=== PATIENT | male | born 1975 | race Hispanic/Latino ===

== ENCOUNTER 2021-05-16 09:59 | Day surgery (SDC) | payer OTHER ==
[2021-05-16] MEDS ORDERED: ceFAZolin/Water 2 GM/20 ML 2 GM/20 ML SYRINGE IV ONE (10:49)
[2021-05-16] MEDS ORDERED: LACTATED RINGERS 1,000 ML ONE (10:49)
[2021-05-16] MEDS ORDERED: ceFAZolin/STERILE WATER 2 GM/20 ML SYRINGE IV NR (11:00)
[2021-05-16] MEDS ORDERED: ONDANSETRON 4 MG/2 ML INJ IV PRN (11:35)
[2021-05-16] MEDS ORDERED: HYDROmorphone 1 MG/1 ML INJ IV PRN ×2 (11:35)
--- NOTE | 2021-05-16 11:35 | Anesthesia Day of Surgery ---
Anesthesia Day of Surgery - Day of Surgery Patient Examined: Yes Patient H&P Reviewed: Yes Patient is NPO: Yes
--- NOTE | 2021-05-16 11:38 | Anesthesia Consultation ---
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
[2021-05-16] MEDS ORDERED: LACTATED RINGERS 1,000 ML IV SCH (11:45)
[2021-05-16] MEDS ORDERED: MIDAZOLAM 2 MG/2 ML INJ IV NR (12:00)
[2021-05-16] MEDS ORDERED: LIDOCAINE MPF (2%) 20 MG/1 ML VIAL 5 ML ONE (12:15)
[2021-05-16] MEDS ORDERED: fentaNYL 100 MCG/2 ML INJ ONE ×2 (12:15→13:02)
[2021-05-16] MEDS ORDERED: propofoL 200 MG/20 ML VIAL IV ONE (12:15)
[2021-05-16] MEDS ORDERED: ONDANSETRON 4 MG/2 ML INJ ONE (12:46)
[2021-05-16] MEDS ORDERED: dexAMETHasone 20 MG/5 ML VIAL ONE (12:46)
[2021-05-16] MEDS ORDERED: WATER FOR IRRIG STERILE 2000 ML IR ONE (13:00)
--- NOTE | 2021-05-16 13:18 | Short Stay Summary ---
Short Stay Documentation Date of service: 05/16/21 - History H&P: obtained from office - Allergies and Medications Current Medications: Allergies No Known Allergies Allergy (Verified 05/11/21 12:17) Home Medications Medication Instructions Recorded Confirmed Last Taken Type Duloxetine HCl [Cymbalta] 60 mg PO QAM 05/11/21 05/16/21 05/16/21 07:00 History Finasteride [Propecia] 10 mg PO DAILY 05/11/21 05/16/21 05/16/21 07:00 History Oxycodone HCl/Acetaminophen 1 each PO Q6HR PRN 05/11/21 05/16/21 05/15/21 20:00 History [Percocet 10/325 mg] Active Medications Hydromorphone HCl (Hydromorphone 1 Mg/1 Ml Inj) 0.25 mg IV Q10MIN PRN PRN Reason: Pain, Moderate (4-6) Stop: 05/17/21 11:34 Hydromorphone HCl (Hydromorphone 1 Mg/1 Ml Inj) 0.5 mg IV Q10MIN PRN PRN Reason: Pain , Severe (7-10) Stop: 05/17/21 11:34 Lactated Ringer's (Lactated Ringers) 1,000 mls @ 125 mls/hr IV DIRECT CARSON Last Admin: 05/16/21 10:59 Dose: 125 mls/hr Midazolam HCl (Midazolam 2 Mg/2 Ml Inj) 2 mg IV PREOP NR Stop: 05/16/21 23:59 Last Admin: 05/16/21 11:40 Dose: 2 mg Ondansetron HCl (Ondansetron 4 Mg/2 Ml Inj) 4 mg IV ONCE PRN PRN Reason: Nausea And Vomiting - Brief post op/procedure progress note Date of procedure: 05/16/21 Pre-op diagnosis: rt ureteral stone Post-op diagnosis: other (left reflux) Procedure: cysto, bilat rpg, rt ureteroscopy, cystogram, rt stent with external string Anesthesia: YOLIA Surgeon: CHELSIE KAY Estimated blood loss: none (distal stricture---rt) Pathology: none Condition: stable - Hospital course Hospital course: bactrim & norco, post op info on chart - Disposition Condition at discharge: Stable Disposition: 01 HOME / SELF CARE / HOMELESS Short Stay Discharge Plan Follow up with: BORA BISHOP MD [Primary Care Provider] - 7 Days
--- NOTE | 2021-05-16 14:30 | Operative Report ---
DATE OF SURGERY: 05/16/2021 PREOPERATIVE DIAGNOSES: Right flank pain, left hydronephrosis and possible stone. POSTOPERATIVE DIAGNOSES: Right ureteral stricture, left ureteral reflux. PROCEDURES PERFORMED: Cystoscopy, bilateral retrograde pyelograms, right ureteroscopy, cystogram, right double-J stent, 6-Luxembourger 24 cm double-J stent with an external string. SURGEON: Angel Ricci MD ANESTHESIA: General. ESTIMATED BLOOD LOSS: Minimal. FLUIDS: Crystalloid. COMPLICATIONS: No complications. INDICATIONS: This 45-year-old gentleman was seen in the office for for right flank pain. CT of abdomen and pelvis suggested a left-sided stone with hydronephrosis. KUB suggested a right-sided stone. However, we followed him conservatively. He presented back to the office with right lower quadrant pain. At this point, we elected to proceed with surgical intervention. DESCRIPTION OF PROCEDURE: The patient was taken to the operative suite, placed in a supine position. After adequate general anesthesia, placed in a dorsal lithotomy position, prepped and draped in a sterile fashion. Pancystourethroscopy was performed with a 22-Luxembourger Storz cystoscope, no urethral abnormalities. Prostate nonobstructing. Bladder, no tumor or stones. Bilateral retrograde pyelograms were obtained with an 8-Luxembourger Reserve catheter and 8 mL of contrast. Some dilation of the left collecting system. The patient did not have pain on the left side. The right collecting system was narrow. An 0.035 Glidewire x2 was placed in the right collecting system. Rigid ureteroscopy was performed. The distal ureter was stenotic, I was able to dilate it with the scope, went up to the renal pelvis, saw a little debris. I sent a culture specimen from the right collecting system via the ureteroscope. Cystogram was then performed. There was some reflux on the left side, possibly grade 2. Bladder was drained. Rectal exam was benign. We put up a 6-Luxembourger 24 cm double-J stent with an external string. He was extubated and taken to recovery room. He will go home on Bactrim and Percocet. TID: [id number] RECEIPT: [id number] [facility]
[2021-05-16] MEDS ORDERED: oxyCODONE /ACETAMINOPHEN 5-325MG TAB PO ONE (15:00)
[2021-05-16 15:02] VITALS: BP 125/88
--- NOTE | 2021-05-16 16:09 | Post Anesthesia Evaluation ---
- Post Anesthesia Evaluation Patient Participated: Yes Airway Patent: Yes Stable Respiratory Function: Yes Nausea/Vomiting: No Temp > 96.8F: Yes Pain Manageable: Yes Adequeate Hydration: Yes Anesthesia Complications: No Block Receding Appropriately: Not Applicable Patient on Ventilator: No
--- NOTE | 2021-05-16 17:47 | Fluoroscopy Report ---
INTRAOPERATIVE FLUOROSCOPY: RETROGRADE UROGRAPHY AND CYSTOGRAPHY INDICATION: RT FLANK PAIN/LT HYDRONEPHROSIS. TECHNIQUE: Intraoperative spot images were obtained during the procedure. FINDINGS: On the cystogram images there appears to be reflux into the distal third of the left ureter. No bladd er abnormalities are seen on the 2 images submitted. On the retrograde urography images, there is dilatation of the left ureter and left renal collecting system. Double-J right ureteral stent is placed over a wire. Fluoroscopy Time: 1 minute, 7 seconds. Fluoroscopy Images: 8. Signer Name: Yordan Love MD Signed: 05/16/2021 5:43 PM Workstation Name: [id number]
== END 2021-05-16 14:40 | disposition home or self-care (01) ==
LOC: OR 09:59
PROVIDERS: ATTEND Urology
DX: N13.1 Hydronephrosis with ureteral stricture, not elsewhere classified (principal); R10.9 Unspecified abdominal pain; F32.9 Major depressive disorder, single episode, unspecified; Z98.890 Other specified postprocedural states; Z87.891 Personal history of nicotine dependence; Z79.899 Other long term (current) drug therapy; Z90.49 Acquired absence of other specified parts of digestive tract; Z98.52 Vasectomy status; Z86.73 Personal history of transient ischemic attack (TIA), and cerebral infarction without residual deficits
CPT/HCPCS: 52332; 74420; 74430; 87086; C1758; C1769; C1889; J0690; J1100; J1170; J2250; J2405; J2704; J3010; J3490; J7120; Q9967